=== PATIENT | female | born 1950 | race Two or more races ===

== ENCOUNTER 2022-03-14 06:28 | Day surgery (SDC) | payer OTHER ==
[~2022-03-14] VITALS: Ht 165.1 cm; Wt 92.5 kg
[~2022-03-14 06:28] MED LIST: ABILIFY2 MG PO; ALTACE2.5 MG PO; CLONAZEPAM1 MG PO; GLIPIZIDE XL2.5 MG PO; LEXAPRO20 MG PO; LEXAPRO5 MG PO; ROSUVASTATIN CA10 MG PO; SINGULAIR 10MG10 MG PO
== END 2022-03-14 14:00 | disposition home or self-care (01) ==
LOC: CIR.AMB 06:28
PROVIDERS: ATTEND Obstetrics & Gynecology
DX: N84.0 Polyp of corpus uteri (principal); Z88.2 Allergy status to sulfonamides; I10 Essential (primary) hypertension; E78.00 Pure hypercholesterolemia, unspecified; Z99.89 Dependence on other enabling machines and devices; G47.33 Obstructive sleep apnea (adult) (pediatric); J45.909 Unspecified asthma, uncomplicated; M51.36 Other intervertebral disc degeneration, lumbar region; K76.0 Fatty (change of) liver, not elsewhere classified; E66.9 Obesity, unspecified; Z79.82 Long term (current) use of aspirin; E11.9 Type 2 diabetes mellitus without complications

== ENCOUNTER 2022-05-14 12:45 | Inpatient (IN) | payer OTHER ==
[~2022-05-14] VITALS: Ht 165.1 cm; Wt 96.6 kg
[2022-05-16] MEDS ORDERED: ARIPIPRAZOLE5 MG (11:47)
[2022-05-16] MEDS ORDERED: NABUMETONE500 MG (11:47)
[2022-05-16] MEDS ORDERED: FUROSEMIDE40 MG (11:47)
[2022-05-16] MEDS ORDERED: LORATADINE10 MG (11:48)
[2022-05-16] MEDS ORDERED: VITAMIN D21250 MCG (11:48)
[2022-05-16] MEDS ORDERED: ROSUVASTATIN CAL5 MG (11:48)
== END 2022-05-18 10:44 | disposition home or self-care (01) | DRG 743 ==
LOC: OB/GYN 05-16 05:50 → O/R 05-16 05:50 → SURH 05-16 07:00 → OB/GYN 05-16 15:26
PROVIDERS: ADMIT Obstetrics & Gynecology Gynecologic Oncology; ATTEND Obstetrics & Gynecology Gynecologic Oncology
PROC: 0UT70ZZ Resection of Bilateral Fallopian Tubes, Open Approach (ICD-10-PCS; 2022-05-16)
PROC: 0UT20ZZ Resection of Bilateral Ovaries, Open Approach (ICD-10-PCS; 2022-05-16)
PROC: 0DBU0ZZ Excision of Omentum, Open Approach (ICD-10-PCS; 2022-05-16)
PROC: 0DTU0ZZ Resection of Omentum, Open Approach (ICD-10-PCS; 2022-05-16)
PROC: 0UT90ZZ Resection of Uterus, Open Approach (ICD-10-PCS; principal; 2022-05-16 07:00)
DX: N85.01 Benign endometrial hyperplasia (principal); N72 Inflammatory disease of cervix uteri; N83.292 Other ovarian cyst, left side; N83.291 Other ovarian cyst, right side; Z20.822 Contact with and (suspected) exposure to COVID-19